=== PATIENT | male | born 1950 | race Caucasian/White ===

== ENCOUNTER 2017-10-08 18:34 | Emergency (ER) | payer MEDICARE, BC ==
[~2017-10-08] VITALS: Ht 170.2 cm; Wt 68.0 kg
[2017-10-08] MEDS ORDERED: PROPECIA (18:44)
[2017-10-08] MEDS ORDERED: LIDOCAINE HCL 2% 20 ML VIAL TP ONE (19:00)
[2017-10-08] MEDS ORDERED: CEPHALEXIN MONOHYDRATE 500 MG CAPSULE PO ONE (19:00)
[2017-10-08] MEDS: TDAP DIPH,PERTUSS,TET VAC/PF 0.5 ML DISP.SYRIN IM ONE ×2 (19:04→19:45)
--- NOTE | 2017-10-08 19:19 | NUR ---
REPORT TAKEN FROM SOURAV TAPIA. RESUMING CARE AT THIS TIME
[2017-10-08] MEDS ORDERED: CEPHALEXIN MONOHYDRATE 500 MG CAPSULE ONE (19:25)
[2017-10-08] MEDS ORDERED: TDAP DIPH,PERTUSS,TET VAC/PF 0.5 ML DISP.SYRIN IM ONE (19:26)
--- NOTE | 2017-10-08 19:50 | NUR ---
Patient discharged to home in stable conditon. Written and verbal after care instructions given. Patient verbalizes understanding of instructions.
[2017-10-08 19:51] VITALS: BP 138/72
--- NOTE | 2017-10-08 19:52 | NUR ---
Patient is DC home will waiting for police to come take report still in ER lobby. Patient dressing clean and intact.
== END 2017-10-08 19:58 | disposition home or self-care (01) ==
LOC: ER 18:35
DX: S61.412A Laceration without foreign body of left hand, initial encounter (principal); W26.0XXA Contact with knife, initial encounter; Y93.89 Activity, other specified; Y92.89 Other specified places as the place of occurrence of the external cause; Y99.8 Other external cause status
CPT/HCPCS: 90715; A4217; A4663

== ENCOUNTER 2017-10-11 07:18 | Emergency (ER) | payer MEDICARE, BC ==
[~2017-10-11] VITALS: Ht 172.7 cm; Wt 65.8 kg
[~2017-10-11 07:18] MED LIST: PROPECIA
[2017-10-11] MEDS ORDERED: [UNRECOGNIZED DRUG - REMARK] (07:30)
--- NOTE | 2017-10-11 07:31 | NUR ---
pt in room, recheck on left hand lac, sutured. pt came with dressing on.pt refused the dressing being taken out and said " it will take a minute for the dressing to come off and I will do it when the doctor comes to see it".
--- NOTE | 2017-10-11 07:50 | NUR ---
Haresh edouard in ED - 10/11/17 at 0830 by KATE left being seen by the doctor.
--- NOTE | 2017-10-11 07:50 | NUR ---
left without being seen by the doctor. pt does not want to wait any longer.
== END 2017-10-11 07:53 | disposition left against medical advice (07) ==
LOC: ER 07:21
DX: Z53.21 Procedure and treatment not carried out due to patient leaving prior to being seen by health care provider (principal)
CPT/HCPCS: A4663